=== PATIENT | male | born 1950 | race Caucasian/White ===

== ENCOUNTER 2017-04-13 05:37 | Inpatient (IN) | payer BC, OTHER ==
[2017-04-05 08:46] LABS: HEMATOCRIT 40.3 % (42.0-52.0); HEMOGLOBIN 13.3 gm/dL (14.0-18.0); MCH 28.7 pg (26.0-34.0); MCHC 32.9 g/dL (28.0-37.0); MCV 87.2 fL (80.0-100.0); RBC 4.62 mil/uL (4.50-6.00); RDW 15.1 % (10.5-14.5); WBC 5.8 thou/uL (4.0-11.0)
[2017-04-05 08:47] LABS: URINE BILIRUBIN NEGATIVE (Negative); URINE BLOOD NEGATIVE (Negative); URINE COLOR YELLOW; URINE GLUCOSE-RANDOM* NEGATIVE (Negative); URINE KETONES NEGATIVE (Negative); URINE LEUKOCYTES-REFLEX NEGATIVE (Negative); URINE PROTEIN (DIPSTICK) NEGATIVE (Negative); URINE SPECIFIC GRAVITY >= 1.030 (1.003-1.035); URINE UROBILINOGEN 0.2 E.U./dl (0.2-1.0)
[2017-04-05 08:59] LABS: PROTIME 10.6 Seconds (9.3-11.4)
[2017-04-05 09:03] LABS: ALBUMIN 4.1 g/dL (3.4-5.0); CALCIUM 9.2 mg/dL (8.5-10.1); CREATININE 1.3 mg/dL (0.7-1.3)
[2017-04-13] VITALS (19 sets, daily range): BP systolic 90–132; BP diastolic 40–80
[~2017-04-13] VITALS: Ht 175.3 cm; Wt 108.0 kg
--- NOTE | ~2017-04-13 | O ---
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 PROCEDURE: Left total knee arthroplasty. SURGEON: Felix Chan MD. INDICATIONS: This is a healthy 67-year-old gentleman, presents with progressive longstanding bilateral knee pain. He has moderate varus malalignment and mild flexion contracture bilaterally. His clinical exam and subjective symptoms are more severe on the left than the right. Findings are consistent with end-stage degenerative arthritis. We have discussed treatment options and elected to go ahead with left total knee arthroplasty. DESCRIPTION OF PROCEDURE: The patient was taken to the operating room, where he was placed under general anesthesia. Prophylactic intravenous antibiotics were administered. The left knee was meticulously prepped and draped. A thigh tourniquet was applied and inflated to 300 mmHg. An anterior longitudinal skin incision was made, and this was carried through the medial retinaculum. The patella was reflected laterally. Marked degenerative change in all 3 compartments was noted. The DePuy PFC knee system was utilized. Intramedullary guides were used on both the femur and the tibia. The femur was cut in 5 degrees of valgus, and the tibia cut perpendicular to the long axis of the bone. Sufficient bone was resected to correct his mild preoperative flexion contracture and moderate varus malalignment. A size 4 femoral component seemed to fit nicely. A size 4 tibial component also seemed to fit nicely. A trial reduction was performed, and a 10 mm polyethylene insert, resulted in satisfactory alignment with good range of motion and stability. A limited soft tissue release along the medial aspect was performed, allowing correction of the varus malalignment with good balancing of the knee. The patellar surface was resected using a patellar cutting guide, and a 38 mm patellar button seemed to fit appropriately. Appropriate anchor holes were created. A trial reduction was performed, and the patella seemed to track nicely without any evidence of instability. [address] [address] OPERATIVE REPORT Name: MIRLANDE JOHNSON Kalyani Room #: 543-P [facility] IN .R.#: [id number] Admission: 04/13/17 Attend Phys: Felix Chan MD Discharge: Date of : 54 Report #: [id number] The trial components were removed. The intramedullary canal was blocked with a bone block on both the femoral and tibial sides. The surfaces were thoroughly irrigated and dried. Methyl methacrylate cement was mixed and injected into the porous surface of the proximal tibia. The DePuy PFC size 4 tibial component was then impacted into the tibia in appropriate position. It seated nicely and appeared to be secure. Excess cement was removed from around its margin. A size 10 mm polyethylene insert was snapped into place. It also seated nicely. A press fit noncemented size 4 left femoral component was then impacted on to the distal femur. It seemed to be very secure with solid fixation and good alignment. A size 38 mm patellar button was cemented into place using appropriate anchor holes and methyl methacrylate cement. It was secured with a patellar clamp until the cement had hardened. Once the cement had fully cured, range of motion and alignment was once again assessed and felt to be satisfactory. The tourniquet was then deflated after a total tourniquet time of 43 minutes. The wound was copiously irrigated. Good hemostasis was confirmed. A single Hemovac was left in the wound, exiting through the separate stab incision. The fascia was then closed with multiple #1 Vicryl sutures. The subcutaneous tissues were closed with 0 Monocryl. The skin was closed with skin megan. A sterile dressing was applied. The patient was awakened and returned to the recovery room in good condition. <ELECTRONICALLY SIGNED> By: Felix Chan MD 04/14/17 1011 0917 1229 Felix Chan MD /nt
--- NOTE | ~2017-04-13 | EKG ---
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 : 1950 Requested By: Felix Chan Order Number: [id number] MD: Ankit Kim Measurements Intervals [place] Rate: 66 P: 25 AR: 145 QRS: 12 QRSD: 103 T: 12 QT: 414 QTc: 434 Interpretive Statements Sinus rhythm No significant abnormality Baseline wander in lead(s) No previous ECG available for comparison Electronically Signed On 04-06-2017 7:39:54 CDT by Ankit Kim [email or web address] <ELECTRONICALLY SIGNED> By: Ankit Kim MD, [facility] 04/06/17 0739 0832 08 Ankit Kim MD, [facility] /EPI
[~2017-04-13 05:37] MED LIST: ALEVE220 MG PO; ALLEGRA ALLERG180 MG PO; CENTRUM SILVER1 EAC2 PO; FENOFIBRATE134 MG PO; GLUCOSAMINE CH1 EAC7 PO; LEXAPRO 10 MG T10 M2 PO; LYRICA 50 MG50 MG PO; NEXIUM40 MG PO; REQUIP4 MG PO; TELMISARTAN-HC1 EAC2 PO; WELCHOL 625 MG625 M1 PO; ZETIA10 MG PO
[2017-04-14 03:07] VITALS: BP 104/62
[2017-04-14 06:25] LABS: HEMATOCRIT 31.3 % (42.0-52.0); HEMOGLOBIN 10.3 gm/dL (14.0-18.0); MCH 28.8 pg (26.0-34.0); MCHC 33.1 g/dL (28.0-37.0); RBC 3.59 mil/uL (4.50-6.00); RDW 14.7 % (10.5-14.5); WBC 10.8 thou/uL (4.0-11.0)
[2017-04-14 07:54] VITALS: BP 95/56
[2017-04-14 15:37] VITALS: BP 123/69
[2017-04-14 16:52] VITALS: BP 132/65
[2017-04-14 20:01] VITALS: BP 117/62
[2017-04-15 04:03] VITALS: BP 9/66
[2017-04-15 04:55] LABS: HEMATOCRIT 29.9 % (42.0-52.0); MCH 29.1 pg (26.0-34.0); MCHC 33.4 g/dL (28.0-37.0); RBC 3.43 mil/uL (4.50-6.00); RDW 14.7 % (10.5-14.5); WBC 8.5 thou/uL (4.0-11.0)
[2017-04-15 05:27] VITALS: BP 99/66
[2017-04-15 08:00] VITALS: BP 112/65
[2017-04-15 15:50] VITALS: BP 103/60
[2017-04-15 20:51] VITALS: BP 124/68
[2017-04-16 03:53] LABS: ABSOLUTE NEUTROPHILS 5.2 thou/uL (1.4-8.2); BASOPHILS 0.3 % (0.0-2.0); EOSINOPHILS 1.4 % (0.0-3.0); HEMATOCRIT 29.9 % (42.0-52.0); HEMOGLOBIN 10.1 gm/dL (14.0-18.0); LYMPHOCYTES 18.3 % (24.0-44.0); MCH 29.3 pg (26.0-34.0); MCHC 33.9 g/dL (28.0-37.0); MCV 86.2 fL (80.0-100.0); MONOCYTES 9.9 % (1.0-8.0); PLATELET COUNT 180 thou/uL (150-400); POLYS 70.1 % (36.0-66.0); RBC 3.47 mil/uL (4.50-6.00); RDW 14.8 % (10.5-14.5); WBC 7.4 thou/uL (4.0-11.0)
[2017-04-16 03:56] LABS: MANUAL DIFF NO
[2017-04-16 04:00] LABS: CALCIUM 8.6 mg/dL (8.5-10.1); CREATININE 1.2 mg/dL (0.7-1.3); POTASSIUM 4.1 mmol/L (3.5-5.1)
[2017-04-16 05:28] VITALS: BP 118/75
[2017-04-16 08:00] VITALS: BP 113/76
== END 2017-04-16 13:58 | disposition home health service (06) | DRG 470 ==
LOC: 5S 05:37 → TBA 05:37 → PRE 07:57 → 5S 10:53 → PRE 14:38 → 5S 04-16 13:58
PROVIDERS: Internal Medicine Endocrinology, Diabetes & Metabolism; Orthopaedic Surgery
PROC: 0SRD0J9 Replacement of Left Knee Joint with Synthetic Substitute, Cemented, Open Approach (ICD-10-PCS; principal; 2017-04-13)
PROC: 5A09357 Assistance with Respiratory Ventilation, Less than 24 Consecutive Hours, Continuous Positive Airway Pressure (ICD-10-PCS; principal; 2017-04-13)
DX: M17.12 Unilateral primary osteoarthritis, left knee (principal); K59.00 Constipation, unspecified; M24.562 Contracture, left knee; M21.162 Varus deformity, not elsewhere classified, left knee; I10 Essential (primary) hypertension; G47.30 Sleep apnea, unspecified; K21.9 Gastro-esophageal reflux disease without esophagitis; M19.049 Primary osteoarthritis, unspecified hand; M94.20 Chondromalacia, unspecified site; E78.5 Hyperlipidemia, unspecified; E66.9 Obesity, unspecified; F32.9 Major depressive disorder, single episode, unspecified; Z90.49 Acquired absence of other specified parts of digestive tract; Z88.6 Allergy status to analgesic agent; Z87.442 Personal history of urinary calculi; Z79.899 Other long term (current) drug therapy; Z98.818 Other dental procedure status; Z87.891 Personal history of nicotine dependence; Z68.35 Body mass index [BMI] 35.0-35.9, adult
CPT/HCPCS: 10785; 50010; 50101; 50415; 50954; 51130; 51225; 51412; 51771; 53000; 53364; 56525; 62110; 62900; 64041; 64043; 70005

== ENCOUNTER 2018-04-19 05:33 | Inpatient (IN) | payer BC, OTHER ==
[2018-04-11 11:46] LABS: HEMATOCRIT 39.9 % (42.0-52.0); HEMOGLOBIN 13.3 gm/dL (14.0-18.0); MCHC 33.4 g/dL (28.0-37.0); MCV 86.9 fL (80.0-100.0); RBC 4.6 mil/uL (4.50-6.00); RDW 14.9 % (10.5-14.5); WBC 5.4 thou/uL (4.0-11.0)
[2018-04-11 11:47] LABS: URINE BILIRUBIN NEGATIVE (Negative); URINE BLOOD NEGATIVE (Negative); URINE CLARITY CLEAR; URINE COLOR YELLOW; URINE GLUCOSE-RANDOM* NEGATIVE (Negative); URINE KETONES NEGATIVE (Negative); URINE LEUKOCYTES-REFLEX NEGATIVE (Negative); URINE NITRITE-REFLEX NEGATIVE (Negative); URINE PROTEIN (DIPSTICK) NEGATIVE (Negative); URINE SPECIFIC GRAVITY 1.025 (1.005-1.035); URINE UROBILINOGEN 0.2 E.U./dl (0.2-1.0)
[2018-04-11 11:58] LABS: PROTIME 10.1 Seconds (9.3-11.4)
[2018-04-11 12:01] LABS: ALBUMIN 4.1 g/dL (3.4-5.0); CALCIUM 9.4 mg/dL (8.5-10.1); CREATININE 1.3 mg/dL (0.7-1.3); POTASSIUM 4.9 mmol/L (3.5-5.1)
[~2018-04-19] VITALS: Ht 177.8 cm; Wt 113.9 kg
[2018-04-19] VITALS (11 sets, daily range): BP systolic 102–130; BP diastolic 56–80
--- NOTE | ~2018-04-19 | O ---
[facility] [place] [address] OPERATIVE REPORT Name: MIRLANDE JOHNSON Room #: 408-P ADM IN M.R.#: [id number] Admission: 04/19/18 Attend Phys: Felix Chan MD Discharge: Date of : 54 Report #: [id number] THIS REPORT FOR: //name// CC: Felix Sullivan DATE OF SERVICE: 04/19/2018 PREOPERATIVE DIAGNOSIS: End-stage degenerative arthritis, right knee. POSTOPERATIVE DIAGNOSIS: End-stage degenerative arthritis, right knee. PROCEDURE: Right total knee arthroplasty. SURGEON: Felix Chan MD. INDICATIONS: This active, fit 68-year-old gentleman has progressive degenerative arthritis in both knees. He underwent left total knee replacement about 1 year ago with good result. He returns now for right total knee arthroplasty. DESCRIPTION OF PROCEDURE: The patient was taken to the operating room, where he was placed under general anesthesia. A femoral nerve block was also applied. Intravenous antibiotics were administered. The right knee and leg were meticulously prepped and draped and a thigh tourniquet inflated to 300 mmHg. An anterior longitudinal skin incision was made and extended through the medial parapatellar retinaculum. Marked degenerative change in all 3 compartments was noted. The femur and tibia were cut using intramedullary guides. The femur was cut in 5 degrees of valgus and the tibia cut perpendicular to the long axis of the bone to correct the moderate preoperative varus malalignment. The femur was best suited for a size 6 Byrd and Nephew Legion cruciate retaining femoral component. The tibia was also best suited for a size 6 tibial component. A trial reduction was performed, and a 10 mm polyethylene insert fit nicely. This resulted in full knee extension and good stability throughout a full arc of motion. The patellar surface was resected and a 32 mm patellar button fit nicely. Appropriate anchor holes were created, and a trial patella was inserted. With all components in place, the knee demonstrated full knee extension and flexion beyond 135 degrees and good stability with varus and valgus stress. The patella seemed to track nicely and appeared to be stable. The trial components were removed. The intramedullary canal was blocked on both the femoral and tibial sides. The surfaces were thoroughly irrigated and dried. Methyl methacrylate cement was mixed and injected into the porous surface of the proximal tibia. The permanent components were brought up onto the field. The Byrd and Nephew size 6 Chhaya II right tibial baseplate was applied. This was impacted into position and seated nicely and appeared to be secure. [address] [address] OPERATIVE REPORT Name: MIRLANDE JOHNSON Kalyani Room #: 408-P [facility] IN .R.#: [id number] Admission: 04/19/18 Attend Phys: Felix Chan MD Discharge: Date of : 54 Report #: [id number] cement was removed from around its margin. A 10 mm Legion cruciate retaining polyethylene insert was then applied. This was snapped into position and seated nicely and appeared to be secure. The press-fit noncemented right size 6 cruciate retaining Legion porous femoral component was impacted on the distal femur. It seated nicely and appeared to be secure. A size 32 mm patellar button was inserted using appropriate anchor holes and cement and was secured with a patellar clamp until the cement had hardened. Once the cement was fully cured, alignment, range of motion and stability were once again assessed and felt to be satisfactory. The patella tracked nicely and appeared to be stable. The tourniquet was deflated after a total tourniquet time of 60 minutes. A single Hemovac was left in the wound exiting through a separate lateral stab incision. Good hemostasis was obtained. The joint was further copiously irrigated. The fascia was then closed with multiple #1 Vicryl sutures. The subcutaneous tissues were closed with 0 Monocryl and the skin was closed with skin megan. A sterile dressing was applied. The patient was awakened and returned to recovery room in good condition. <ELECTRONICALLY SIGNED> By: Felix Chan MD 04/20/18 1345 0949 1056 Felix Chan MD /nt
--- NOTE | ~2018-04-19 | EKG ---
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
[~2018-04-19 05:33] MED LIST changes: +ASPIR 8181 MG PO; +COLACE100 MG PO
[2018-04-20 00:28] VITALS: BP 108/63
[2018-04-20 05:55] VITALS: BP 121/76
[2018-04-20 06:44] LABS: ABSOLUTE NEUTROPHILS 5.7 thou/uL (1.4-8.2); BASOPHILS 0.4 % (0.0-2.0); EOSINOPHILS 4.3 % (0.0-3.0); HEMATOCRIT 33.4 % (42.0-52.0); HEMOGLOBIN 11.1 gm/dL (14.0-18.0); LYMPHOCYTES 17.8 % (24.0-44.0); MCHC 33.3 g/dL (28.0-37.0); MCV 87.2 fL (80.0-100.0); MONOCYTES 10.3 % (1.0-8.0); PLATELET COUNT 198 thou/uL (150-400); POLYS 67.2 % (36.0-66.0); RBC 3.82 mil/uL (4.50-6.00); RDW 14.8 % (10.5-14.5); WBC 8.5 thou/uL (4.0-11.0)
[2018-04-20 06:55] LABS: CALCIUM 8.7 mg/dL (8.5-10.1); CREATININE 1.4 mg/dL (0.7-1.3); POTASSIUM 4.5 mmol/L (3.5-5.1)
[2018-04-20 08:23] VITALS: BP 112/59
[2018-04-20 19:24] VITALS: BP 100/56
[2018-04-21 03:05] VITALS: BP 96/65
[2018-04-21 03:39] LABS: HEMATOCRIT 30.9 % (42.0-52.0); HEMOGLOBIN 10.3 gm/dL (14.0-18.0); MCH 29.3 pg (26.0-34.0); MCHC 33.4 g/dL (28.0-37.0); MCV 87.7 fL (80.0-100.0); RBC 3.52 mil/uL (4.50-6.00); RDW 14.8 % (10.5-14.5); WBC 8.5 thou/uL (4.0-11.0)
[2018-04-21 07:31] VITALS: BP 124/75
[2018-04-21 15:53] VITALS: BP 113/61
[2018-04-21 20:23] VITALS: BP 128/67
[2018-04-22 04:17] VITALS: BP 110/58
[2018-04-22 05:52] LABS: HEMATOCRIT 26.7 % (42.0-52.0); HEMOGLOBIN 8.9 gm/dL (14.0-18.0); MCHC 33.4 g/dL (28.0-37.0); MCV 86.8 fL (80.0-100.0); RBC 3.08 mil/uL (4.50-6.00); RDW 14.5 % (10.5-14.5); WBC 6.7 thou/uL (4.0-11.0)
[2018-04-22 06:02] LABS: CALCIUM 8.8 mg/dL (8.5-10.1); CREATININE 1.3 mg/dL (0.7-1.3); POTASSIUM 4.6 mmol/L (3.5-5.1)
[2018-04-22 08:17] VITALS: BP 118/79
[2018-04-22] MEDS ORDERED: XARELTO10 MG PO (10:15)
[2018-04-22] MEDS ORDERED: PERCOCET 10-321 EACH PO (10:15)
[2018-04-22 10:32] VITALS: BP 118/79
[2018-04-22 10:53] VITALS: BP 118/79
[2018-04-22 12:46] VITALS: BP 118/79
== END 2018-04-22 14:52 | disposition home health service (06) | DRG 470 ==
LOC: TBA 05:33 → 4N 05:33 → PRE 05:34 → OR 10:37 → EDSTATUS 10:38 → PRE 10:39 → 4N 11:17
PROVIDERS: Hospitalist; Nurse Practitioner; Orthopaedic Surgery
PROC: 0SRC0J9 Replacement of Right Knee Joint with Synthetic Substitute, Cemented, Open Approach (ICD-10-PCS; principal; 2018-04-19)
DX: M17.0 Bilateral primary osteoarthritis of knee (principal); Z96.652 Presence of left artificial knee joint; E78.5 Hyperlipidemia, unspecified; G25.81 Restless legs syndrome; G47.33 Obstructive sleep apnea (adult) (pediatric); F32.9 Major depressive disorder, single episode, unspecified; F41.9 Anxiety disorder, unspecified; G62.9 Polyneuropathy, unspecified; E78.00 Pure hypercholesterolemia, unspecified; K21.9 Gastro-esophageal reflux disease without esophagitis; E66.9 Obesity, unspecified; I10 Essential (primary) hypertension; Z87.442 Personal history of urinary calculi; Z90.49 Acquired absence of other specified parts of digestive tract; Z99.81 Dependence on supplemental oxygen; Z79.82 Long term (current) use of aspirin; Z79.899 Other long term (current) drug therapy; Z98.890 Other specified postprocedural states; Z87.891 Personal history of nicotine dependence; Z68.36 Body mass index [BMI] 36.0-36.9, adult
CPT/HCPCS: 10790; 50010; 50101; 50415; 50954; 51130; 51225; 51412; 51771; 56525; 62110; 62900; 70005

== ENCOUNTER → 2020-05-04 | Outpatient (CLI) | payer BC, OTHER ==
[~2020-05-04] MED LIST changes: +PERCOCET 10-321 EACH PO; +XARELTO10 MG PO
== END ==
LOC: SJCVC 10:32
PROVIDERS: ATTEND Internal Medicine
DX: R06.09 Other forms of dyspnea (principal); I11.0 Hypertensive heart disease with heart failure; I50.32 Chronic diastolic (congestive) heart failure; E78.5 Hyperlipidemia, unspecified; G47.33 Obstructive sleep apnea (adult) (pediatric); M19.90 Unspecified osteoarthritis, unspecified site; Z79.899 Other long term (current) drug therapy; Z87.891 Personal history of nicotine dependence

== ENCOUNTER → 2020-05-08 | Outpatient (CLI) | payer BC, OTHER | LOC: SJCVCIMAG 08:53 | PROVIDERS: ATTEND Internal Medicine | DX: I07.1 Rheumatic tricuspid insufficiency (principal) ==

== ENCOUNTER → 2020-05-11 | Outpatient (CLI) | payer BC, OTHER | LOC: SJCVCIMAG 08:54 | PROVIDERS: ATTEND Internal Medicine | DX: I49.1 Atrial premature depolarization (principal); E78.5 Hyperlipidemia, unspecified; I11.0 Hypertensive heart disease with heart failure; I50.32 Chronic diastolic (congestive) heart failure; Z87.891 Personal history of nicotine dependence ==

== ENCOUNTER → 2021-09-16 | Outpatient (CLI) | payer BC, OTHER | LOC: RAD 12:47 | PROVIDERS: ATTEND Internal Medicine | DX: J98.11 Atelectasis (principal) ==

== ENCOUNTER → 2021-10-21 | Outpatient (CLI) | payer BC, OTHER ==
--- NOTE | 2021-11-17 13:38 | PFR/MVV ---
[facility] [place] [address] [place] [address] PULMONARY FUNCTION MVV/REPORT Name: TIM JOHNSON Room #: REG ALICE Dirk.#: [id number] Admission: 10/21/21 Attend Phys: Tim Byrd MD Discharge: Date of : 54 Report #: [id number] THIS REPORT FOR: //name// >> SPIROMETRY: (BTPS) Height: 68 in cm Weight: 275 lbs kg Exam Date: 10/21/21 PRE-RX POST-RX PRED BEST %PRED BEST %PRED %CHG FVC LITERS . 4.10 . 3.13 . 76 . 3.32 . 81 . 6 FEV1 LITERS . 2.79 . 2.45 . 88 . 2.60 . 93 . 6 FEV1/FVC % . 69 . 78 . 113 . 78 . 113 . 0 ZZQ52-91% L/Sec . 2.60 . 2.36 . 91 . 2.59 . 99 . 10 PEF L/SEC . 7.82 . 5.37 . 69 . 5.82 . 74 . 8 FEF50/FIF50 UNITLESS . 3.77 . 4.10 . 109 . 4.43 . 118 . 8 MVV L/Min . 122 . . f 1/Min . . . >> LUNG VOLUMES: (BTPS) PRE-RX POST-RX PRED AVG %PRED AVG %PRED %CHG VC Liters . 4.10 . 3.65 . 89 . . . TLC Liters . 6.05 . 6.32 . 104 . . . RV Liters . 2.39 . 2.67 . 112 . . . RV/TLC % . 40 . 42 . 105 . . . FRC [address] Liters . 2.70 . 2.72 . 101 . . . FRC N2 Liters . 2.70 . . . . . ERV Liters . 1.40 . 0.06 . 4 . . . IC Liters . 2.81 . 3.60 . 128 . . . >> DIFFUSION: DLCO ml/Min/mmHg . 26.7 . 23.8 . 89 . . . DL Juan ml/Min/mmHg . 26.7 . 23.8 . 89 . . . DLCO/VA ml/Min/mmHg . 3.49 . 4.81 . 138 . . . VA Liters . 6.74 . 4.95 . 73 . . . COMMENTS: COMMENTS: >> RESISTANCE: [facility] [address] [place] [address] PULMONARY FUNCTION MVV/REPORT Name: TIM JOHNSON Room #: REG [facility].#: [id number] Admission: 10/21/21 Attend Phys: Tim Byrd MD Discharge: Date of : 54 Report #: [id number] PRE-RX PRED AVG %PRED Raw Total cmH20/L/Sec . . 5.08 . Raw Insp cmH20/L/Sec . . 3.07 . Raw Exp cmH20/L/Sec . . 4.76 . Raw cmH20/L/Sec . 1.81 . 4.21 . 232 Gaw L/Sec/cmH20 . 0.648 . 0.238 . 37 sRaw cmH20 Sec . 4.89 . 19.77 . 404 sGaw l/cmH20 Sec . 0.204 . 0.051 . 25 Vtq Liters . . 4.70 . # = OUTSIDE 95% CONFIDENCE INTERVAL CALIBRATION: PRED: 3.00 ACTUAL: EXP 3.01 INSP 3.02 [facility]-05 N-1804-4 >> INTERPRETATION/IMPRESSION: DATE OF SERVICE: 10/21/2021 PULMONARY FUNCTION STUDIES SPIROMETRY: FEV1 is 2.45 liters (88% predicted), FVC is 3.13 liters (76% predicted), ____ ratio is 78%. LUNG VOLUMES: Total lung capacity is 6.32 liters (104% predicted). Vital capacity is 3.65 liters (89% predicted). There is no significant response to bronchodilator therapy. Diffusing capacity is 89%. IC to ERV ratio is 3.60 liters:0.06 liters. IMPRESSION: Pulmonary function studies are essentially normal. There is a slight decrease in vital capacity, likely secondary to a pseudo-restriction. Diffusing capacity is normal. There is no significant change to bronchodilator therapy. <ELECTRONICALLY SIGNED> By: Ceilo Brumfield MD 11/17/21 1338 Celio Brumfield MD /nt
== END ==
LOC: PUL 07:58
PROVIDERS: ATTEND Internal Medicine
DX: J98.11 Atelectasis (principal); R06.02 Shortness of breath; Z20.822 Contact with and (suspected) exposure to COVID-19